=== PATIENT | male | born 1930 | race Hispanic/Latino ===

== ENCOUNTER 2020-02-29 09:12 | Day surgery (SDC) | payer MEDICARE ==
[~2020-02-29 09:12] MED LIST: SODIUM CHLORIDE 0.9% 1000 ML 1,000 ML IV SCH
[2020-02-29] MEDS ORDERED: propofoL 200 MG/20 ML VIAL IV ONE (10:39)
--- NOTE | 2020-02-29 10:43 | Anesthesia Consultation ---
Anesthesia Consult and Med Hx Date of service: 02/29/20 - Airway Anesthetic Teeth Evaluation: Good (multiple missing teeth in the bottom), Bridges (pemanent top front) ROM Head & Neck: Adequate Mental/Hyoid Distance: Adequate Mallampati Class: Class II Intubation Access Assessment: Probably Good - Pre-Operative Health Status ASA Pre-Surgery Classification: ASA3 Proposed Anesthetic Plan: MAC - Cardiovascular System Hx Hypertension: Yes Hx Cardia Arrhythmia: Yes (atrial fibrillation, off blood thinners for a few days) - Additional Comments Anesthesia Medical History Comments: s/p right forearm amputation - trauma (1948), hard of hearing, took his BP meds this AM
--- NOTE | 2020-02-29 10:44 | Anesthesia Day of Surgery ---
Anesthesia Day of Surgery - Day of Surgery Patient Examined: Yes Patient H&P Reviewed: Yes Patient is NPO: Yes
--- NOTE | 2020-02-29 11:45 | Procedure Note ---
Date of procedure: 02/29/20 Pre-op diagnosis: Diarrhea/ Colitis Post-op diagnosis: other (R/O Microscopic Colitis/ R/O Ileitis/Few,Scattered Left colon Diverticuli/Rectal Polyps/Mild to Moderate Internal and External hemorrhoids) Procedure: Colonoscopy with Cold Biiopsy Anesthesia: MAC Surgeon: SHERYL BONDS Estimated blood loss: minimal Pathology: list Specimen disposition: to lab Condition: stable Disposition: same day (Treat with Welchol and prn Imodium and OTC Probiotics. Avoid aspirin,NSAID and anticoagulants for 4 days; follow up in 1 to 2 weeks ([phone]).)
--- NOTE | 2020-02-29 12:11 | Operative Report ---
COLONOSCOPY INDICATIONS: This is an 89-year-old white male who is in otherwise reasonably good health in spite of his advanced age who has an underlying history of hypertension, has a prior history of bladder cancer, for which he has been treated in the past. He has also had some hemorrhoidal surgery done. He has a family history of cancer. His daughter had ovarian cancer. Lately, he has been complaining of persistent diarrhea. Colonoscopy was done to assess for the diarrhea. DESCRIPTION OF PROCEDURE: The procedure was done after getting informed consent with MAC anesthesia. Initial rectal exam showed some mild external hemorrhoid. Instrument was then passed through the rectum onto the cecum, which was identified with ileocecal valve and appendiceal orifice. Visualization was fair. Biopsy was done from the ileocecal valve as well as from the terminal ileum, which was briefly intubated and showed normal mucosa. Random biopsies were done from the cecum, ascending colon, transverse colon, descending colon, and sigmoid to rule out for microscopic colitis. There were a few scattered diverticula noted in the left colon and in the retroverted view in the rectum, there were 2 polyps noted. This was removed by cold biopsy. There was minimal bleeding associated with the procedure. No complications associated with the procedure. ASSESSMENT: Diarrhea, rule out microscopic colitis, rule out ileitis. Few scattered left colon diverticula, rectal polyps and [id number] internal hemorrhoid. Again, there was no complication associated with the procedure. Minimal bleeding associated with the biopsies. The patient will be placed on Welchol, also asked to take Imodium A-D as needed for the diarrhea and encourage the patient to take probiotics, avoid aspirin and aspirin-related products and anticoagulants for the next 4-5 days and follow up in the office in 1-2 weeks' time. The procedure was done in the GI lab with assistance of the GI lab team, which included Camila PATEL as well as Jermaine stearns and with assistance of anesthesia. JOB# [id number] CATA/DEWAYNE
[2020-02-29 12:19] VITALS: BP 160/68
--- NOTE | 2020-02-29 14:01 | Post Anesthesia Evaluation ---
- Post Anesthesia Evaluation Patient Participated: Yes Airway Patent: Yes Stable Respiratory Function: Yes Nausea/Vomiting: No Temp > 96.8F: Yes Pain Manageable: Yes Adequeate Hydration: Yes Anesthesia Complications: No
== END 2020-02-29 09:13 | disposition home or self-care (01) ==
LOC: GIO 09:12
DX: R19.7 Diarrhea, unspecified (principal); K57.30 Diverticulosis of large intestine without perforation or abscess without bleeding; K64.8 Other hemorrhoids; K52.89 Other specified noninfective gastroenteritis and colitis; K62.1 Rectal polyp; I10 Essential (primary) hypertension; I42.9 Cardiomyopathy, unspecified; K63.89 Other specified diseases of intestine; Z79.899 Other long term (current) drug therapy; Z80.0 Family history of malignant neoplasm of digestive organs; Z85.51 Personal history of malignant neoplasm of bladder; Z88.8 Allergy status to other drugs, medicaments and biological substances
CPT/HCPCS: 45380; 88305; J2704; J7030